=== PATIENT | male | born 1995 | race Caucasian/White ===

== ENCOUNTER 2016-09-12 07:40 | Day surgery (SDC) | payer MEDICARE, OTHER ==
[2016-09-10 11:10] LABS: ASCORBIC ACID (UR NOT ORDER) NEG (NEG); BILIRUBIN, URINE NEGATIVE (NEG); KETONE, URINE NEGATIVE (NEG); LEUKOCYTE ESTERASE(NOT OR NEG (NEG); WBC (NOT ORDERED) (RFLEX) 1 (0-5)
--- NOTE | ~2016-09-12 | OP ---
Record Of Operation [facility] [address] [place]. [address] NAME: BERNABE ANDREW : 89 STATUS : [place] [facility] [place] PAT#: [id number] AGE: 21 ADM/REG DATE : 09/12/16 MR#: [id number] REPORT SERV DATE: 09/12/16 DICTATED BY: FABRICIO NY JR. DATE: 09/12/16 REPORT STATUS : Draft TRANSCRIBED BY: MODL DATE: 09/12/16 DATE OF PROCEDURE: 09/12/2016 SURGEON: Fabricio Ny M.D. PREOPERATIVE DIAGNOSIS: Left spermatocele. POSTOPERATIVE DIAGNOSIS: Left hydrocele. PROCEDURE PERFORMED: Left hydrocelectomy. COMPLICATIONS: None. CONSULTATIONS: None. ANESTHESIA: General with a laryngeal mask airway. SPECIMENS: Left hydrocele sac. DRAINS: None. ESTIMATED BLOOD LOSS: 5 mL. INDICATION: Mr. Andrew is a 21-year-old gentleman who has had an increasing mass in his left hemiscrotum for several months. Ultrasound was performed which was read as a spermatocele, however, on exam this was felt to be more of a hydrocele. We discussed the options of treatment with the patient and family and in the end, decided a hydrocelectomy/spermatocelectomy was appropriate for him due to the increasing symptoms he was having from this enlarging mass. PROCEDURE IN DETAIL: After the patient was identified and proper informed consent was obtained, he was taken to the operating room. General anesthesia was performed without complication using a laryngeal mask airway. He was then prepped and draped in the normal sterile fashion in the supine position. A transverse scrotal incision was made through the left hemiscrotum. The testicle was delivered through the dartos fascia out into the operative field. I then cleared the dartos fascia from the testicle until it was a pendulous testicle on the spermatic cord. I then made an incision anteriorly and vertically along the hydrocele sac, opening the hydrocele, removing the hydrocele fluid approximately 200 mL. I then excised a portion of the hydrocele after marsupializing and everting the hydrocele sac. I sent that for specimen. I inspected for hemostasis and irrigated the testicle with sterile saline. I then closed the hydrocele sac in a typical bottle-neck fashion using a 3-0 locking chromic suture. I then replaced the testicle within the scrotal compartment and closed the scrotum in two layers; the dartos fascia in a 2-0 chromic running locking suture; and a 3-0 chromic running nonlocking suture in the skin. Dermabond fluffs and a scrotal support were used for dressing. The patient was awakened in the operating room and transferred to the postanesthesia care unit in stable condition. I will see him Record Of Operation [address] [place]. [address] NAME: BERNABE ANDREW : [birth year] STATUS : [place] [facility] [place] PAT#: [id number] AGE: 21 ADM/REG DATE : 09/12/16 MR#: [id number] REPORT SERV DATE: 09/12/16 DICTATED BY: FABRICIO NY JR. DATE: 09/12/16 REPORT STATUS : Draft TRANSCRIBED BY: NILE DATE: 09/12/16 back in two weeks for followup. RYLEY/NILE Fabricio Ny Jr., M.D. / [id number] CC: Clyde Linares Jr.
[~2016-09-12 07:40] MED LIST: KLONO2 PO; SEROQUEL1C PO
== END 2016-09-12 13:33 | disposition home or self-care (01) ==
LOC: SDC 07:40
PROVIDERS: Urology
PROC: 0VB70ZZ Excision of Left Tunica Vaginalis, Open Approach (ICD-10-PCS; principal; 2016-09-12 09:45)
DX: N43.40 Spermatocele of epididymis, unspecified (principal); F39 Unspecified mood [affective] disorder; J30.2 Other seasonal allergic rhinitis; Z98.890 Other specified postprocedural states
CPT/HCPCS: 81001; 88302; A9270-GY; J0694; J2250; J2405; J3010